=== PATIENT | female | born 1940 | race Caucasian/White ===

== ENCOUNTER → 2017-01-24 | Outpatient (CLI) | payer MEDICARE ==
[2015-03-03 12:17] VITALS: BP 191/97
[~2017-01-24] MED LIST: CYCL10TA2 PO; DOXY100C2 PO; HYDR-971 PO; LOSA1TAB16 PO; PRAV40TA2 PO
--- NOTE | 2017-01-24 12:35 | KCIC ---
CT of the paranasal sinuses HISTORY: Chronic sinusitis with fever for 2 months. TECHNIQUE: Standard noncontrast images. COMPARISON: None FINDINGS: The paranasal sinuses are clear without fluid levels or significant mucosal thickening. No evidence of aggressive bone destruction. Orbital structures appear grossly symmetric. Degenerative changes are noted at the C1 and C2 level. There is some calcification posterior to the odontoid likely due to chronic pannus. Degenerative changes at the right temporomandibular joint. IMPRESSION: No evidence of acute paranasal sinus disease. Electronically signed by: Yeison Romero MD (01/24/2017 12:32 PM) [facility]
== END | disposition home or self-care (01) ==
LOC: KCIC CT 10:57
PROVIDERS: ATTEND Family Medicine
DX: J32.9 Chronic sinusitis, unspecified (principal); R50.9 Fever, unspecified
CPT/HCPCS: 70486

== ENCOUNTER → 2020-01-24 | Outpatient (CLI) | payer MEDICARE ==
[2015-03-03 12:17] VITALS: BP 191/97
[~2020-01-24] MED LIST changes: +AMLO10TA8 PO; +ASPI81TA59 PO; +CALC500T54 PO; +CETI10TA16 PO; +CYAN250T PO; +HYDR-3164 PO; -HYDR-971 PO; +IOHEXOL 180 MG/ML 10 ML VIAL. ONE; -LOSA1TAB16 PO; +LOSA1TAB19 PO; +MULT-47 PO; +TIZA4TAB2 PO; +methylPREDNISolone ACETATE 40 MG/ML VIAL. ONE; +methylPREDNISolone ACETATE 80 MG/ML VIAL. ONE; +vitamin d
--- NOTE | 2020-01-24 14:28 | PDOC2 ---
INITIAL PAIN CONSULT DATE OF SERVICE: DOS: DATE: 01/24/20 TIME: 14:20 CHIEF COMPLAINT: Chief Complaint: Neck and bilateral upper extremity pain HISTORY OF PRESENT ILLNESS: 79-year-old female male presents with history of pain base the neck and shoulder and upper extremities for about 1 month now not the result of any injury or accident that she is aware of, but significantly painful in the base the neck shoulders radiating the upper arms mostly the posterior aspect the deltoid and the triceps but present bilaterally slightly worse on the right than the left but present bilaterally reports intermittent intensity worse with reaching worse with weightbearing repetitive motions with the upper extremities right greater than left patient is right-handed. Patient has tried physical therapy as well as chiropractic treatment exercise which he is currently doing all which have been helpful but not to decrease neck pain for any significant period of time patient is tried hydrocodone which helps as well taking that twice daily currently. Patient did have an MRI scan of the cervical spine showing multilevel cervical spondylosis similar to appearance of March 21, 2017 exam with moderate to space narrowing C4-5 C5-6 C6-7 and C7-T1 with osteophyte formation C5-6 C6-7 shows mild bilateral uncovertebral osteophyte formation resulting in mild narrowing of the medial portion of the bilateral neural foramina C7-T1 showing broad-based posterior disc osteophyte formation without focal disc herniation or central canal stenosis. Also mild bilateral uncover tebral osteophyte formation resulting in mild narrowing of the medial portion of the bilateral neural foramen at C7-T1. Patient rates her disability rating 0-10 10 being the worst as 5 with family home responsibilities and recreation and occupation and self-care and life support activity 7 with social activity. Patient reports no overt motor loss but significant fatigability with the upper extremities patient on the right side with repetitive motion PAST MEDICAL HISTORY: PMH: Hypertension, arthritis, cigarette smoking PREVIOUS SURGERIES: Past Surgical Hx: No previous surgeries CURRENT MEDICATIONS: Current Meds: Active Scripts Medications Dose Route/Sig Max Daily Dose Days Date Category Vitamin B-12 (Cyanocobalamin (Vitamin B-12)) 250 Mcg Tablet 250 Mcg PO DAILY 01/24/20 Reported [vitamin d] 125 DAILY 01/24/20 Reported Calcium (Calcium Carbonate) 500 Mg Tab.chew 1 Tab PO DAILY 30 01/24/20 Reported Children's Aspirin (Aspirin) 81 Mg Tab.chew 1 Tab PO DAILY 30 01/24/20 Reported Multiple Vitamins For Women (Multivit With Calcium,Iron,Min) 1 Each Tablet 1 Tab PO DAILY 30 01/24/20 Reported Tizanidine Hcl 4 Mg Tablet 4 Mg PO QID PRN 01/24/20 Reported Cetirizine Hcl 10 Mg Tablet 1 Tab PO DAILY 01/24/20 Reported Amlodipine Besylate 10 Mg Tablet 10 Mg PO DAILY 01/24/20 Reported Pravastatin Sodium 40 Mg Tablet 1 Tab PO QHS 01/17/15 Reported [place] 5-325 Tablet (Acetaminophen/Hydrocodone Bitart) 1 Each Tablet 1 Tab PO TID 01/17/15 Reported Losartan-Hctz 50-12.5 Mg Tab (Losartan/Hydrochlorothiazide) 1 Each Tablet 1 Tab PO DAILY 01/17/15 Reported ALLERGIES; Allergies: Coded Allergies: Sulfa (Sulfonamide Antibiotics) (Unverified Allergy, Intermediate, 01/17/15) codeine (Unverified Allergy, Intermediate, 01/17/15) fluoxetine (Unverified Allergy, Intermediate, 01/17/15) FAMILY HISTORY: Family Hx: Diabetes SOCIAL HISTORY: Social Hx: Patient does not drink alcohol smokes about half pack a day cigarettes and continues to smoke and has for 60 years, patient is not use any illegal illicit recreational drugs is lives with her spouse reports she is currently retired. REVIEW OF SYSTEMS: ROS: Positive for those items mentioned in history of present illness, all systems are reviewed, otherwise negative, is complete full and well-documented on patient's chart PHYSICAL EXAM: VS: Blood pressure is 125/69 pulse 85 respirations 18 temperature 97.9 F height is 4 feet 11 inches weight is 1 1 4 pounds PE: PHYSICAL EXAMINATION: GENERAL: The patient is awake, alert, oriented, appropriate, very pleasant de meanor HEENT: Shows normocephalic, atraumatic. Extraocular movements are intact and symmetrical. Oral cavity: Mucous membranes moist and pink. Dentition is intact. NECK: Shows anterior throat supple without palpable lymphadenopathy noted. Swallow reflex symmetrical. CHEST: Shows normal on inspection. Breath sounds are clear bilaterally, distant but no rales rhonchi or wheezes auscultated. HEART: Shows S1, S2 clear. No murmurs auscultated. ABDOMEN: Soft, nontender, nondistended. No palpable organomegaly is noted. No rebound or guarding demonstrated. BACK: Shows spine grossly in the midline. Normal-appearing cervical lordotic curvature, neck shows full rotation motion cervical spine both laterally greater than 45 degrees some moderate tenderness reported with rotation to the right past 45 degrees closer to 90 degrees but with pulling sensation on the left side left lateral rotation shows no discomfort right or left patient is full rotation and extension as well as full forward flexion without significant pain reported. There is slightly increased thoracic kyphosis, some minor flattening of the lumbar lordotic curvature. Lumbar paraspinous muscles show symmetrical on inspection, on palpation shows some moderate tenderness diffusely throughout the upper, middle and lower distribution of the paraspinous muscles bilaterally, but without specific trigger points, without radiation of pain. EXTREMITIES: Upper extremities show deep tendon reflexes 2+ in the biceps and triceps tendons. Motor exam is 4 on a scale of 5 with right entry level sales representative strength, biceps triceps flexion and 5/5 on the left. Peripheral pulses are 2+ radial. No peripheral edema is noted bilaterally. Upper extremities are warm and dry to touch, equal in color and appearance. Shoulder shrug is strong and intact without loss of strength on resistance as is abduction of the shoulder 90 degrees without loss of strength but with some moderate tenderness in the base of the neck slightly more on the right than the left with these maneuvers. SKIN: Shows warm and dry, good turgor. No edema. No sores, rashes or bruising throughout. IMPRESSION: Impression: 79-year-old female with approximate 1 month history increasing pain base the neck and shoulders right lateral upper extremities right greater than left. MRI scan cervical spine as noted Hypertension Arthritis Plan: Options were discussed with the patient including conservative medical management physical therapies interventional techniques. Patient would like to be interventional techniques, we discussed a cervical epidural steroid injection using description as well as anatomical models to describe the procedure. Risks were discussed including but not limited to: Bleeding, infection, possibility of epidural hematoma and subsequent neurological compromise, dural puncture, headaches, spinal cord and/or nerve damage, side effects of steroid medication, and poor results regarding pain control. Patient understands wished to proceed. Patient return to clinic in possibly 2 weeks for follow-up was counseled as return appointment activity level and side effects to be aware of. Procedure cervical epidural steroid injection at the C6-7 level, using local anesthetic under sterile prep and drape using C-arm fluoroscopic guidance under local anesthesia medications injected ; 120 mg Depo-Medrol + 5 mL normal saline and 2 mL contrast; condition at discharge is stable patient tolerated procedure well. and had no complications MADISON OBRIEN MD Jan 24, 2020 14:28
== END | disposition home or self-care (01) ==
LOC: PNCL 13:09
PROVIDERS: ATTEND Anesthesiology
DX: M47.812 Spondylosis without myelopathy or radiculopathy, cervical region (principal); M25.78 Osteophyte, vertebrae; M25.512 Pain in left shoulder; M25.511 Pain in right shoulder; I10 Essential (primary) hypertension; M19.90 Unspecified osteoarthritis, unspecified site; F17.210 Nicotine dependence, cigarettes, uncomplicated; Z88.2 Allergy status to sulfonamides; Z88.5 Allergy status to narcotic agent; Z88.8 Allergy status to other drugs, medicaments and biological substances; Z79.82 Long term (current) use of aspirin; Z79.899 Other long term (current) drug therapy
CPT/HCPCS: 62321; J1030; J1040; Q9965

== ENCOUNTER → 2020-02-21 | Outpatient (CLI) | payer MEDICARE ==
[2015-03-03 12:17] VITALS: BP 191/97
[~2020-02-21] MED LIST changes: +AMLO-187 PO; -AMLO10TA8 PO
--- NOTE | 2020-02-21 14:00 | PDOC ---
Progress Note - Pain Clinic Date of Service: DOS: DATE: 02/21/20 TIME: 13:50 Diagnosis: Dx: Cervical radiculopathy with cervical degenerative disc disease and cervical spondylosis History or Present Illness: HPI: 39-year-old female returns follow-up status post cervical epidurals injection x1. Patient reports about 70% improvement the neck and shoulders and upper extremities more so on the left than the right with the right still having some significant pain left in the base the neck shoulder right upper extremity rating to the right forearm patient reports is a 5 on a scale of 10 is worse the past week 5 on average 3 its least is a 5 today patient describes as dull tight in the neck also shooting and some tingling pain in the upper and forearm. Patient reports it does not awaken her from sleep worse with using the upper extremities with repetitive motion especially on the right side now the left is doing much better. Patient reports no new motor or sensory deficits or other complaints. Physical Exam: VS: Blood pressure 154/84 pulse 91 respirations 18 temperature 98.2 F height is 4 foot 11 inches weight is 117 pounds PE: PHYSICAL EXAMINATION: GENERAL: The patient is awake, alert, oriented, appropriate, very pleasant demeanor HEENT: Shows normocephalic, atraumatic. Extraocular movements are intact and symmetrical. NECK: Shows anterior throat supple without palpable lymphadenopathy noted. Swallow reflex symmetrical. CHEST: Shows normal on inspection. Breath sounds are clear bilaterally. HEART: Shows S1, S2 clear. No murmurs auscultated. ABDOMEN: Soft, nontender, nondistended. No palpable organomegaly is noted. No rebound or guarding demonstrated. BACK: Shows spine grossly in the midline. Normal-appearing cervical lordotic curvature. Neck shows full rotation motion cervical spine both laterally as well as extension flexion without significant increase in pain. Posterior cervical musculature shows symmetrical on inspection with palpation some moderate tenderness diffusely in the inferior aspect the cervical paraspinous posture but more on the right than the left into the superior medial trapezius but without specific trigger points atrophy or hypertrophy. There is slightly increased thoracic kyphosis, some minor flattening of the lumbar lordotic curvature. Lumbar paraspinous muscles show symmetrical on inspection, on palpation shows some moderate tenderness diffusely throughout the upper, middle and lower distribution of the paraspinous muscles bilaterally without specific trigger points, without radiation of pain. The patient has good rotational motion of the lumbar spine, both laterally as well as extension and flexion without significant difficulty. No tenderness over the spinous processes, sacrum or sacroiliac regions. EXTREMITIES: Upper extremities show deep tendon reflexes 2+ in the biceps and triceps tendons. Motor exam is 4 on a scale of 5 with right channel account manager strength bicep and triceps flexion and 5/5 on the left. Peripheral pulses are 2+ radial. No peripheral edema is noted bilaterally. Upper extremities are warm and dry to touch, equal in color and appearance. SKIN: Shows warm and dry, good turgor. No edema. No sores, rashes or bruising throughout. Procedure: Procedure: Options were discussed with the patient. Patient's old chart was reviewed as her current medication regimen updated current review of systems updated today as well. We will proceed with a second in the series cervical epidural steroid injection today with fluoroscopic guidance. Risks were discussed including but not limited to: Bleeding, infection, possibility of epidural hematoma and subsequent neurological compromise, dural puncture, headaches, spinal cord and/or nerve damage, side effects of steroid medication, and poor results regarding pain control. Patient understands wished to proceed. Patient will return to clinic in approximate 2 weeks for follow-up was counseled as to return appointment activity level and side effects to be aware of. Medication Injected: Med Injected: Procedure cervical epidural steroid injection at the C6-7 level, using local anesthetic under sterile prep and drape using C-arm fluoroscopic guidance under local anesthesia medications injected ; 120 mg Depo-Medrol + 5 mL normal saline and 2 mL contrast; condition at discharge is stable patient tolerated procedure well. and had no complications Condition at Discharge: Condition at Discharge: Condition at discharge is stable patient tolerated the procedure well had no complications. MADISON OBRIEN MD Feb 21, 2020 14:00
== END ==
LOC: PNCL 13:03
PROVIDERS: ATTEND Anesthesiology
DX: M50.123 Cervical disc disorder at C6-C7 level with radiculopathy (principal); M47.892 Other spondylosis, cervical region; I10 Essential (primary) hypertension; F17.210 Nicotine dependence, cigarettes, uncomplicated; Z88.2 Allergy status to sulfonamides; Z88.5 Allergy status to narcotic agent; Z88.8 Allergy status to other drugs, medicaments and biological substances; Z79.82 Long term (current) use of aspirin; Z79.899 Other long term (current) drug therapy
CPT/HCPCS: 62321; J1030; J1040; Q9965

== ENCOUNTER → 2020-07-07 | Outpatient (CLI) | payer MEDICARE ==
[2015-03-03 12:17] VITALS: BP 191/97
[~2020-07-07] MED LIST changes: -CYAN250T PO; +CYAN250T3 PO
--- NOTE | 2020-07-07 12:40 | PDOC ---
Progress Note - Pain Clinic Date of Service: DOS: DATE: 07/07/20 TIME: 12:36 Diagnosis: Dx: Cervical radiculopathy with cervical degenerative disease and cervical spondylosis History or Present Illness: HPI: 79-year-old female returns follow-up status post cervical epidural steroid injection x2. Last seen February 21, 2020 patient did very well for several months pain is returning down the base the neck and shoulders. Patient reports some right equal to left with pain base the neck shoulders radiating into the upper extremities as well. Patient reports no loss of motor function but significant fatigability with the left and right shoulders and upper extremities with pain rated to the anterior deltoid as well as biceps bilaterally into the forearm bilaterally. Patient reports is an 8 on a scale of 10 is worst 8 on average and is 7 its least over the past week and is 8 today patient reports is aching and tight tingling coming more constant with activity reaching overhead with bilateral upper extremities awaken her from sleep occasionally but not every night patient reports no new motor or sensory deficits no new bowel or bladder incontinence. Patient also complains of bilateral shoulder joint pain with rotation of motion as well as bilateral knee joint pain with walking and standing. Physical Exam: VS: Blood pressure is 163/81 pulse 93 respirations 18 temperature 90.4 F height is 4 foot 11 inches weight 121 pounds PE: PHYSICAL EXAMINATION: GENERAL: The patient is awake, alert, oriented, appropriate, very pleasant demeanor HEENT: Shows normocephalic, atraumatic. Extraocular movements are intact and symmetrical. Oral cavity: Mucous membranes moist and pink. Dentition is intact. NECK: Shows anterior throat supple without palpable lymphadenopathy noted. Swallow reflex symmetrical. CHEST: Shows normal on inspection. Breath sounds are clear bilaterally, no rales or rhonchi. HEART: Shows S1, S2 clear. No murmurs auscultated. ABDOMEN: Soft, nontender, nondistended, obese. No palpable organomegaly is noted. d. BACK: Shows spine grossly in the midline. Normal-appearing cervical lordotic curvature. Cervical paraspinous muscles show symmetrical with inspection, on palpation some moderate tenderness diffusely bilaterally diffusely without significant radiation. Patient does show good rotation of motion both laterally greater than 45 degrees bilaterally as well as full extension and full forward flexion without significant increase in pain. There is slightly increased thoracic kyphosis, some minor flattening of the lumbar lordotic curvature. Lumbar paraspinous muscles show symmetrical on inspection, on palpation shows some moderate tenderness diffusely throughout the upper, middle and lower distribution of the paraspinous muscles without specific trigger points, without radiation of pain. The patient has good rotational motion of the lumbar spine, both laterally as well as extension and flexion without significant difficulty. No tenderness over the spinous processes, sacrum or sacroiliac regions. EXTREMITIES: Upper extremities show deep tendon reflexes 2+ in the biceps and triceps tendons. Motor exam is 4 on a scale of 5 with right internet marketing manager strength, biceps and triceps flexion and 5/5 on the left. Peripheral pulses are 2+ radia l. No peripheral edema is noted bilaterally. Upper extremities are warm and dry to touch, equal in color and appearance. SKIN: Shows warm and dry, good turgor. No edema. No sores, rashes or bruising throughout. Procedure: Procedure: Options were discussed with the patient. Patient's old chart reviews her current medication regimen updated current review of systems updated today as well. We will proceed with a third in the series cervical epidural steroid injection today with fluoroscopic guidance. Risks were discussed including but not limited to: Bleeding, infection, possibility of epidural hematoma and subsequent neurological compromise, dural puncture, headaches, spinal cord and/or nerve damage, side effects of steroid medication, and poor results regarding pain control. Patient understands and wished to proceed. Patient will return to the clinic in approximate 2 weeks for follow-up, was counseled as to return appointment activity level and side effects to be aware of. Medication Injected: Med Injected: Procedure cervical epidural steroid injection at the C6-7 level, using local anesthetic under sterile prep and drape using C-arm fluoroscopic guidance under local anesthesia medications injected ; 120 mg Depo-Medrol + 5 mL normal saline and 2 mL contrast; condition at discharge is stable patient tolerated pr ocedure well. and had no complications Condition at Discharge: Condition at Discharge: Condition at discharge stable, patient alert the procedure well and had no complications. MADISON OBRIEN MD Jul 07, 2020 12:40
--- NOTE | 2020-07-07 12:41 | PDOC4 ---
PROCEDURE Procedure Patient was consented for cervical epidural steroid injection. Risks were d iscussed including but not limited to: Bleeding, infection, possibility of epidural hematoma and subsequent neurological compromise, dural puncture, headaches, spinal cord and/or nerve damage, side effects of steroid medication, and poor results regarding pain control. Patient understands and wished to proceed. Procedure cervical epidural steroid injection at the C6-7 level, using local anesthetic under sterile prep and drape using C-arm fluoroscopic guidance under local anesthesia medications injected ; 120 mg Depo-Medrol + 5 mL normal saline and 2 mL contrast; condition at discharge is stable patient tolerated procedure well. and had no complications MADISON OBRIEN MD Jul 07, 2020 12:40
== END | disposition home or self-care (01) ==
LOC: PNCL 12:11
PROVIDERS: ATTEND Anesthesiology
DX: M50.10 Cervical disc disorder with radiculopathy, unspecified cervical region (principal); M47.22 Other spondylosis with radiculopathy, cervical region; I10 Essential (primary) hypertension; M19.90 Unspecified osteoarthritis, unspecified site; F17.210 Nicotine dependence, cigarettes, uncomplicated; Z79.82 Long term (current) use of aspirin; Z79.84 Long term (current) use of oral hypoglycemic drugs; Z79.899 Other long term (current) drug therapy; Z98.890 Other specified postprocedural states; Z72.89 Other problems related to lifestyle; Z88.2 Allergy status to sulfonamides; Z88.5 Allergy status to narcotic agent; Z88.8 Allergy status to other drugs, medicaments and biological substances
CPT/HCPCS: 62321; J1030; J1040; Q9965

== ENCOUNTER → 2020-11-27 | Outpatient (CLI) | payer MEDICARE ==
[2015-03-03 12:17] VITALS: BP 191/97
--- NOTE | 2020-11-27 13:47 | PDOC ---
Progress Note - Pain Clinic Date of Service: DOS: DATE: 11/27/20 TIME: 13:43 Diagnosis: Dx: Cervical radiculopathy with cervical degenerative disease and cervical spondylosis History or Present Illness: HPI: 79-year-old female returns for follow-up status post cervical epidural steroid injections most recently seen July 07, 2020 patient did very well with 90% improvement for several months pain returned now about 2 weeks time. With pain returning base the neck and shoulders are somewhat worse on the right than the left and present bilaterally radiating to the upper extremities bilaterally into the shoulders arms and forearms as well as in the hands more on the right than the left patient reports some fatigability of the right arm but no loss of motor function completely patient reports the pain is an 8 on scale 10 is worse over the past week 7 on average 6 its least is a 7 today. Patient reports is aching and tight tingling constant shooting and stabbing in the neck and shoulders as well as in the right greater than left upper extremities. She reports wakes her from sleep occasionally but not most nights. Patient reports is worse with weightbearing repetitive motions reaching lifting or reaching forward with weight in the upper extremities. Patient reports no motor loss but significant fatigability bilaterally. Physical Exam: VS: Blood pressure is 157/83 pulse 87 respirations 18 temperature 90.5 F height is 4 feet 11 inches weight is 120 pounds PE: PHYSICAL EXAMINATION: GENERAL: The patient is awake, alert, oriented, appropriate, very pleasant in demeanor. HEENT: Shows normocephalic, atraumatic. Extraocular movements are intact and symmetrical. Oral cavity: Mucous membranes moist and pink. Dentition is intact. NECK: Shows anterior throat supple without palpable lymphadenopathy noted. Swallow reflex symmetrical. CHEST: Shows normal on inspection. Breath sounds are clear bilaterally, distant but no rales rhonchi or wheezes auscultated. HEART: Shows S1, S2 clear. No murmurs auscultated. ABDOMEN: Soft, nontender, nondistended, obese. No palpable organomegaly is noted. BACK: Shows spine grossly in the midline. Normal-appearing cervical lordotic curvature. Cervical paraspinous muscles show symmetrical inspection on palpation some moderate tenderness diffusely throughout the upper middle lower distribution the paraspinous muscles but without specific trigger points, without radiation or asymmetry. Patient shows good rotation motion cervical spine slightly guarded right and left lateral rotation but past 45 degrees closer to 90 degrees well is full extension full forward flexion again guarded and slow movement but without significant limitation. There is slightly increased thoracic kyphosis, some minor flattening of the lumbar lordotic curvature. EXTREMITIES: Upper extremities show deep tendon reflexes 2+ in the biceps and tricep tendons. Motor exam is 4 on a scale of 5 with right gang hemstitching machine operator, biceps and triceps flexion and 5/5 on the left. Peripheral pulses are 2+ radial. No peripheral edema is noted bilaterally. Upper extremities are warm and dry to touch, equal in color and appearance. SKIN: Shows warm and dry, good turgor. No edema. No sores, rashes or bruising throughout. Procedure: Procedure: Options discussed with the patient. Patient chart reviews her current medication regimen updated current review of systems updated today as well. We will proceed with a cervical epidural steroid injection stable fluoroscopic guidance. Risks were discussed including but not limited to: Bleeding, infection, possibility of epidural hematoma and subsequent neurological c ompromise, dural puncture, headaches, spinal cord and/or nerve damage, side effects of steroid medication, and poor results regarding pain control. Patient understands and wished to proceed. Patient will return to the clinic in approximate 2 weeks for follow-up, was counseled as return appointment activity level and side effects to be aware of. Medication Injected: Med Injected: Procedure cervical epidural steroid injection at the C6-7 level, using local anesthetic under sterile prep and drape using C-arm fluoroscopic guidance under local anesthesia medications injected ;120 mg Depo-Medrol +5 mL normal saline and 2 mL contrast; condition at discharge is stable patient tolerated procedure well. and had no complications Condition at Discharge: Condition at Discharge: Condition at discharge stable, patient already the procedure well and had no complications. MADISON OBRIEN MD Nov 27, 2020 13:47
--- NOTE | 2020-11-27 13:48 | PDOC4 ---
Procedure Note: ICD 10 Code: ICD 10 Code: M 54.12 M 47.812 Procedure Note: Patient was consented for cervical epidural steroid injection with fluoroscopic guidance. Risks were discussed including but not limited to: Bleeding, infection, possibility of epidural hematoma and subsequent neurological compromise, dural puncture, headaches, spinal cord and/or nerve damage, side effects of steroid medication, and poor results regarding pain control. Patient understands and wished to proceed. Procedure cervical epidural steroid injection at the C6-7 level, using local anesthetic under sterile prep and drape using C-arm fluoroscopic guidance under local anesthesia medications injected ;120 mg Depo-Medrol +5 mL normal saline and 2 mL contrast; condition at discharge is stable patient tolerated procedure well. and had no complications MADISON OBRIEN MD Nov 27, 2020 13:48
== END ==
LOC: PNCL 13:04
PROVIDERS: ATTEND Anesthesiology
DX: M47.812 Spondylosis without myelopathy or radiculopathy, cervical region (principal); M50.123 Cervical disc disorder at C6-C7 level with radiculopathy
CPT/HCPCS: 62321; J1030; J1040; Q9965

== ENCOUNTER → 2021-01-21 | Outpatient (CLI) | payer MEDICARE ==
[2015-03-03 12:17] VITALS: BP 191/97
[~2021-01-21] MED LIST changes: -DOXY100C2 PO; +DOXY100C3 PO; -IOHEXOL 180 MG/ML 10 ML VIAL. ONE; -methylPREDNISolone ACETATE 40 MG/ML VIAL. ONE; -methylPREDNISolone ACETATE 80 MG/ML VIAL. ONE
--- NOTE | 2021-01-21 14:08 | KCIC ---
EXAM: Cervical spine MRI without contrast. HISTORY: Cervical stenosis. TECHNIQUE: Multiplanar, multisequence magnetic resonance imaging of the cervical spine was performed without contrast. COMPARISON: None. FINDINGS: There is severe cervical kyphosis centered at C5. There is 4 mm anterolisthesis of C3 on C4 and C4 on C5, 2 mm retrolisthesis of C5 on C6 and C6 on C7 and 2 mm anterolisthesis of C7 on T1, T1 on T2 and T2 on T3. There is severe degenerative endplate remodeling with disc space narrowing and os teophytosis primarily at C3-C7. There are multiple endplate Schmorl's nodes. There is multilevel adva nced facet arthropathy. There is deformation of the cervical spinal cord at multiple levels due to ce ntral canal stenosis. There is no convincing myelomalacia or spinal cord edema. There are few dilated nerve root sheath cysts within the neural foramina at the upper thoracic levels. The skull base is u nremarkable. There are small cysts or erosions at the base of the dens and there is soft tissue jono s surrounding the dens. This is a nonspecific finding which can be seen with rheumatoid arthritis. At C2-C3, there is a posterior central disc protrusion. There is severe bilateral facet arthropathy. There is right uncovertebral arthropathy. There is buckling of the ligamentum flavum. There is modera te and central canal stenosis measuring 7.6 mm in anterior posterior dimension. At C3-C4, there is a disc bulge and endplate remodeling. There is moderate right and severe left face t arthropathy. There is uncovertebral arthropathy. There is buckling of the ligamentum flavum. There is moderate central canal stenosis measuring 7.3 mm in anterior posterior dimension. At C4-C5, there is near complete loss of the disc space. There is endplate osteophytosis. There is mo derate bilateral facet arthropathy. There is uncovertebral arthropathy. There is no stenosis. At C5-C6, there is a disc bulge and endplate osteophytosis. There is mild bilateral facet arthropathy . There is right greater than left uncovertebral arthropathy. There is moderate right and mild left f oraminal stenosis. At C6-C7, there is a disc bulge and endplate osteophytosis. There is mild bilateral facet arthropathy . There is bilateral uncovertebral arthropathy. There is moderate right and mild left foraminal steno sis. At C7-T1, there is a disc bulge and endplate osteophytosis. There is mild bilateral facet arthropathy . There is uncovertebral arthropathy. There is moderate right foraminal stenosis. IMPRESSION: 1. Multilevel degenerative change throughout the cervical and upper thoracic spine, described in deta il above. This is associated with significant foraminal and central canal stenosis at the aforementio erik levels. There is deformation of the cervical spinal cord due to central canal stenosis at multipl e levels, without convincing spinal cord edema or myelomalacia. 3. Severe cervical kyphosis and multilevel degenerative listhesis. Electronically signed by: Francisca Alvarado MD (01/21/2021 2:06 PM) [facility]
== END ==
LOC: KCIC MRI 12:54
PROVIDERS: ATTEND Family Medicine
DX: M47.815 Spondylosis without myelopathy or radiculopathy, thoracolumbar region (principal); M48.05 Spinal stenosis, thoracolumbar region; M50.21 Other cervical disc displacement, high cervical region; M48.02 Spinal stenosis, cervical region; M40.202 Unspecified kyphosis, cervical region; M25.78 Osteophyte, vertebrae
CPT/HCPCS: 72141

== ENCOUNTER → 2021-03-11 | Outpatient (CLI) | payer MEDICARE ==
[2015-03-03 12:17] VITALS: BP 191/97
[~2021-03-11] MED LIST changes: +CYCL10TA19 PO; -CYCL10TA2 PO; +IOHEXOL 180 MG/ML 10 ML VIAL. ONE; +TIZA-75 PO; -TIZA4TAB2 PO; +methylPREDNISolone ACETATE 40 MG/ML VIAL. ONE; +methylPREDNISolone ACETATE 80 MG/ML VIAL. ONE
--- NOTE | 2021-03-11 10:48 | PDOC ---
Progress Note - Pain Clinic Date of Service: DOS: DATE: 03/11/21 TIME: 10:43 Diagnosis: Dx: Cervical radiculopathy with cervical degenerative disease and cervical spondylosis History or Present Illness: HPI: 80-year-old female returns last seen November 27, 2020 did very well after cervical epidural steroid injection and reports pain is returning now and she is recently seen her neurosurgeon who is recommending conservative measures as well as physical therapy patient reports still significant pain in the base the neck and shoulders now more in both of the shoulders right and left were previously was more on the right side it is persistently equal now in the left side as well as radiating to the left arm more than it had in the past patient reports is a 9 on scale 10 is worst 9 average and 8 its least is a 9 today patient ports tingling sharp aching burning can be constant worse with repetitive motions reaching or weightbearing and extended walking and using her walker causing some pain in the neck as well patient reports generally awakens her from sleep every 3-4 hours at night over the past month or so patient reports after last injection she did very well for several months pain decreased by about 75% initially now about 50% overall. Patient reports no motor deficits Physical Exam: VS: Blood pressure is 146/74 pulse 96 respiration 16 temperature 90.1 F is 4 foot 11 inches weight is 122 pounds. PE: PHYSICAL EXAMINATION: GENERAL: The patient is awake, alert, oriented, appropriate, very pleasant in demeanor HEENT: Shows normocephalic, atraumatic. Extraocular movements are intact and symmetrical. Oral cavity: Mucous membranes moist and pink. Edentulous NECK: Shows anterior throat supple without palpable lymphadenopathy noted. Swallow reflex symmetrical. CHEST: Shows normal on inspection. Breath sounds are clear bilaterally, no rales rhonchi or wheezes. HEART: Shows S1, S2 clear. No murmurs auscultated. ABDOMEN: Soft, nontender, nondistended. No palpable organomegaly is noted. BACK: Shows spine grossly in the midline. Normal-appearing cervical lordotic curvature. Cervical paraspinous muscles show symmetrical with inspection, on palpation some moderate tenderness diffusely bilaterally in the upper middle lower decrease the paraspinous muscles without trigger points without asymmetry but moderately tender this is true into the superior medial trapezius as well bilaterally without trigger points or asymmetry. Patient shows good rotation of motion of cervical spine both laterally as well as full extension full forward flexion somewhat guarded but without increase in pain or radiation. There is sl ightly increased thoracic kyphosis, some minor flattening of the lumbar lordotic curvature. EXTREMITIES: Upper extremities show deep tendon reflexes 2+ in the biceps and tricep tendons. Motor exam is 4 on a scale of 5 with right quarter supervisor strength, biceps and triceps flexion and 5/5 on the left. Peripheral pulses are 2+ radial. No peripheral edema is noted bilaterally. Upper extremities are warm and dry to touch, equal in color and appearance. SKIN: Shows warm and dry, good turgor. No edema. No sores, rashes or bruising throughout. Procedure: Procedure: Options were discussed with the patient. Patient's old chart was reviewed as her current medication regimen updated current review of systems updated today as well. We will proceed with a cervical epidural steroid injection today with fluoroscopic guidance. Risks were discussed including but not limited to: Bleeding, infection, possibility of epidural hematoma and subsequent neurological compromise, dural puncture, headaches, spinal cord and/or nerve damage, side effects of steroid medication, and poor results regarding pain control. Patient understands and wished to proceed. Patient will return to the clinic in approximately 2 weeks for follow-up, was counseled as return appointment, [place], and side effect to be aware of. Medication Injected: Med Injected: Procedure cervical epidural steroid injection at the C6-7 level, using local anesthetic under sterile prep and drape using C-arm fluoroscopic guidance under local anesthesia medications injected ;120 mg Depo-Medrol +5 mL normal saline and 2 mL contrast; condition at discharge is stable patient tolerated procedure well. and had no complications Condition at Discharge: Condition at Discharge: Condition at discharge is stable, patient tolerated the procedure well had no complications MADISON OBRIEN MD Mar 11, 2021 10:48
--- NOTE | 2021-03-11 10:48 | PDOC4 ---
Procedure Note: ICD 10 Code: ICD 10 Code: M54.12 M50.30 M4 7.812 Procedure Note: Patient is consented for cervical epidural steroid injection with fluoroscopic guidance. Risks were discussed including but not limited to: Bleeding, infection, possibility of epidural hematoma and subsequent neurological compromise, dural puncture, headaches, spinal cord and/or nerve damage, side effects of steroid medication, and poor results regarding pain control. Patient understands and wished to proceed. Procedure cervical epidural steroid injection at the C6-7 level, using local anesthetic under sterile prep and drape using C-arm fluoroscopic guidance under local anesthesia medications injected ;120 mg Depo-Medrol +5 mL normal saline and 2 mL contrast; condition at discharge is stable patient tolerated procedure well. and had no complications MADISON OBRIEN MD Mar 11, 2021 10:48
== END | disposition home or self-care (01) ==
LOC: PNCL 10:11
PROVIDERS: ATTEND Anesthesiology
DX: M50.10 Cervical disc disorder with radiculopathy, unspecified cervical region (principal); M47.812 Spondylosis without myelopathy or radiculopathy, cervical region; I10 Essential (primary) hypertension; M19.90 Unspecified osteoarthritis, unspecified site; F17.210 Nicotine dependence, cigarettes, uncomplicated; Z79.82 Long term (current) use of aspirin; Z79.899 Other long term (current) drug therapy; Z88.2 Allergy status to sulfonamides; Z88.5 Allergy status to narcotic agent; Z88.8 Allergy status to other drugs, medicaments and biological substances
CPT/HCPCS: 62321; J1030; J1040; Q9965

== ENCOUNTER → 2021-05-21 | Outpatient (CLI) | payer MEDICARE ==
[2015-03-03 12:17] VITALS: BP 191/97
[~2021-05-21] MED LIST changes: +CHOL400C PO; -IOHEXOL 180 MG/ML 10 ML VIAL. ONE; -methylPREDNISolone ACETATE 40 MG/ML VIAL. ONE; -methylPREDNISolone ACETATE 80 MG/ML VIAL. ONE
--- NOTE | 2021-05-21 14:11 | PDOC ---
Progress Note - Pain Clinic Date of Service: DOS: DATE: 05/21/21 TIME: 14:05 Diagnosis: Dx: Cervical radiculopathy with cervical degenerative disease and cervical spondylosis Osteoarthritis History or Present Illness: HPI: 80-year-old female returns status post cervical epidural steroid injection x2 last seen March 11, 2021 patient did very well with about 85% improvement initially now about 50% improvement overall in the pain base the neck and left upper extremity greater than right patient reports she is doing much better with distance walking doing household activities travel with greater ease and comfort sleeping better patient reports still better when she is laying down or supporting her head when she is sitting upright and generally not awaken her from sleep currently. Patient reports that colder weather we have had recently has increased pain as well patient rates her pain as a 9 on scale 10 is worse over the past week 7 on average 7 its least is a 7 today. Patient scribes pain as aching and tight in the base the neck and shoulders constant and severe cramping at times with radiating pain into the upper extremities again more so on the left than the right but present bilaterally patient reports also significant increase in fatigability and dropping items with her left hand most prominently and difficulty with fine motor movements such as using buttons or snaps on clothing. Patient complains of significant pain in the hands and wrist as well as the elbows and also the knees and she is seeing orthopedist for her knees as well with osteoarthritis. We discussed patient's medication regimen she is currently not taking any anti- inflammatories for the arthritic pains we will start diclofenac 25 mg twice daily patient was given instructions as well as side effects aware with the new medication. Physical Exam: VS: Blood pressure is 144/73 pulse 69 respirations 18 temperature 90.3 F weight 119 pounds PE: PHYSICAL EXAMINATION: GENERAL: The patient is awake, alert, oriented, appropriate, very pleasant in demeanor HEENT: Shows normocephalic, atraumatic. Extraocular movements are intact and symmetrical. Oral cavity: Mucous membranes moist and pink. NECK: Shows anterior throat supple without palpable lymphadenopathy noted. Swallow reflex symmetrical. CHEST: Shows normal on inspection. Breath sounds are clear bilaterally, no rales rhonchi or wheezes auscultated. HEART: Shows S1, S2 clear. No murmurs auscultated. ABDOMEN: Soft, nontender, nondistended. No palpable organomegaly is noted. BACK: Shows spine grossly in the midline. Normal-appearing cervical lordotic curvature. Cervical paraspinous muscles show symmetrical inspection, on palpation some moderate tenderness diffusely throughout the middle and lower distribution paraspinous muscles bilaterally but without radiation without trigger points. Patient does show good rotation motion but slightly guarded with right left lateral rotation as well as extension and forward flexion they are performed fully. There is significantly increased thoracic kyphosis, some flattening of the lumbar lordotic curvature. EXTREMITIES: Upper extremities show deep tendon reflexes 2+ in the biceps and tricep tendons. Motor exam is 4 on a scale of 5 with right production quality analyst, biceps and tricep flexion and 5/5 on the left. Peripheral pulses are 2+ radial. No peripheral edema is noted bilaterally. Upper extremities are warm and dry to touch, equal in color and appearance. Shoulder shrug strong intact without loss strength on resistance bilaterally. SKIN: Shows warm and dry, good turgor. No edema. No sores, rashes or bruising throughout. Procedure: Procedure: Options were discussed with patient. Patient chart was reviewed his current medication regimen updated current review of systems updated today as well. We will proceed with cervical epidural steroid injection today with fluoroscopic guidance. Risks were discussed including but not limited to: Bleeding, infection, possibility of epidural hematoma and subsequent neurological compromise, dural puncture, headaches, spinal cord and/or nerve damage, side effects of steroid medication, and poor results regarding pain control. Patient understands and wished to proceed. Patient will return to clinic in [facility] 4 weeks for follow-up, was counseled as to return appointment, activity level, and side effects beware of. Again patient was given instructions as well as side effects aware with the new medication diclofenac 25 mg twice daily. Medication Injected: Med Injected: Procedure cervical epidural steroid injection at the C6-7 level, using local anesthetic under sterile prep and drape using C-arm fluoroscopic guidance under local anesthesia medications injected ;120 mg Depo-Medrol +5 mL normal saline and 2 mL contrast; condition at discharge is stable patient tolerated procedure well. and had no complications Condition at Discharge: Condition at Discharge: Condition at discharge stable, paced tolerated the procedure well and had no complications. MADISON OBRIEN MD May 21, 2021 14:11
--- NOTE | 2021-05-21 14:12 | PDOC4 ---
Procedure Note: ICD 10 Code: ICD 10 Code: M54.12 M50.30 M4 7.812 Procedure Note: Patient was consented for cervical epidural steroid injection with fluoroscopic guidance. Risks were discussed including but not limited to: Bleeding, infection, possibility of epidural hematoma and subsequent neurological compromise, dural puncture, headaches, spinal cord and/or nerve damage, side effects of steroid medication, and poor results regarding pain control. Patient understands and wished to proceed. Procedure cervical epidural steroid injection at the C6-7 level, using local anesthetic under sterile prep and drape using C-arm fluoroscopic guidance under local anesthesia medications injected ;120 mg Depo-Medrol +5 mL normal saline and 2 mL contrast; condition at discharge is stable patient tolerated procedure well. and had no complications MADISON OBRIEN MD May 21, 2021 14:12
== END | disposition home or self-care (01) ==
LOC: PNCL 13:06
PROVIDERS: ATTEND Anesthesiology
DX: M50.10 Cervical disc disorder with radiculopathy, unspecified cervical region (principal); M47.22 Other spondylosis with radiculopathy, cervical region; M19.90 Unspecified osteoarthritis, unspecified site; I10 Essential (primary) hypertension; Z79.899 Other long term (current) drug therapy; Z98.890 Other specified postprocedural states
CPT/HCPCS: 62321

== ENCOUNTER → 2021-07-22 | Outpatient (CLI) | payer MEDICARE ==
[2015-03-03 12:17] VITALS: BP 191/97
[~2021-07-22] MED LIST changes: +DEXAMETHASONE PRES.FREE 10 MG/ML VIAL. ONE; +IOHEXOL 180 MG/ML 10 ML VIAL. ONE
--- NOTE | 2021-07-22 14:55 | PDOC ---
Progress Note - Pain Clinic Date of Service: DOS: DATE: 07/22/21 TIME: 14:50 Diagnosis: Dx: Cervical radiculopathy with cervical degenerative disease and cervical spondylosis History or Present Illness: HPI: 80-year-old female returns last seen May 21, 2021 patient did very well after cervical epidural steroid injection with about 80% improvement initially now down about 50% improvement but still lasting patient reports the pain is much worse now on the left shoulder, without any recent injury or accident that is radiating into the left arm as initially was only in the shoulders bilaterally. Patient reports is new finding of radiating pain to the left arm is been going on for about a month not result of any specific injury but she did fall about 2 weeks ago at home however the pain in the arm was already there prior to this and that did not seem to exacerbate the pain significantly patient reports that is tingling and burning in the left arm and hand also in the forearm but not into the fingers patient reports aching and sharp and dull and tight in the bilateral shoulders right and left patient reports her pain is a 9 on scale 10 is worse over the past week 9 on average 7 at its least and is a 7 today. Patient reports is better with sitting or resting does not generally awaken her from sleep at night worse with repetitive motions reaching with her left arm or putting her weight on her arms when she is using her walker to ambulate she notices it in the left forearm that time as well. Patient reports no loss of motor function but significant fatigability of the left upper extremity as well. Physical Exam: VS: Blood pressure is 156/73 pulse 90 respirations 18 temperature is 98.1 F height is 4 feet 11 inches weight is 121 pounds. PE: PHYSICAL EXAMINATION: GENERAL: The patient is awake, alert, oriented, appropriate, very pleasant in demeanor HEENT: Shows normocephalic, atraumatic. Extraocular movements are intact and symmetrical. Oral cavity: Mucous membranes moist and pink. NECK: Shows anterior throat supple without palpable lymphadenopathy noted. Swallow reflex symmetrical. CHEST: Shows normal on inspection. Breath sounds are clear bilaterally, distant but no rales or rhonchi auscultated. HEART: Shows S1, S2 clear. No murmurs auscultated. ABDOMEN: Soft, nontender, nondistended. BACK: Shows spine grossly in the midline. Normal-appearing cervical lordotic curvature. Cervical paraspinous muscles show symmetrical with inspection, on palpation some moderate tenderness diffusely in the inferior aspect of the cervical paraspinous musculature as well as the superior medial trapezius more on the left than the right but without trigger points or atrophy hypertrophy no asymmetry. Patient shows limited rotation of motion of the cervical spine but good rotation 45 degrees right and left with some minor pain with extension but not with forward flexion. There is slightly increased thoracic kyphosis. EXTREMITIES: Upper extremities show deep tendon reflexes 2+ in the biceps and triceps tendons. Motor exam is 5 on a scale of 5 with right deployment specialist, biceps and triceps flexion and 4/5 on the left. Peripheral pulses are 2+ radial. No peripheral edema is noted bilaterally. Upper extremities are warm and dry to touch, equal in color and appearance. SKIN: Shows warm and dry, good turgor. No edema. No sores, rashes or bruising throughout. Procedure: Procedure: Options discussed with patient. Patient's old chart was reviewed as her current medication regimen updated current review of systems updated today as well. We will proceed with a cervical epidural steroid injection today with fluoroscopic guidance. Risks were discussed including but not limited to: Bleeding, infection, possibility of epidural hematoma and subsequent neurological compromise, dural puncture, headaches, spinal cord and/or nerve damage, side effects of steroid medication, and poor results regarding pain control. Patient understands and wished to proceed. Patient return to clinic in approximately 3 weeks for follow-up, was counseled as to return appointment, activity level, and side effect to be aware of. Medication Injected: Med Injected: Procedure cervical epidural steroid injection at the C6-7 level, using local anesthetic under sterile prep and drape using C-arm fluoroscopic guidance under local anesthesia medications injected ; 20 mg dexamethasone +5 mL normal saline and 2 mL contrast; condition at discharge is stable patient tolerated procedure well. and had no complications Condition at Discharge: Condition at Discharge: Condition at discharge stable, paced tolerated procedure well and had no complications. MADISON OBRIEN MD Jul 22, 2021 14:55
--- NOTE | 2021-07-22 14:56 | PDOC4 ---
Procedure Note: ICD 10 Code: ICD 10 Code: M54.12 M50.30 M4 7.812 Procedure Note: Patient was consented for cervical epidural steroid injection with fluoroscopic guidance. Risks were discussed including but not limited to: Bleeding, infection, possibility of epidural hematoma and subsequent neurological compromise, dural puncture, headaches, spinal cord and/or nerve damage, side effects of steroid medication, and poor results regarding pain control. Patient understands and wished to proceed. Procedure cervical epidural steroid injection at the C6-7 level, using local anesthetic under sterile prep and drape using C-arm fluoroscopic guidance under local anesthesia medications injected ; 20 mg dexamethasone +5 mL normal saline and 2 mL contrast; condition at discharge is stable patient tolerated procedure well. and had no complications MADISON OBRIEN MD Jul 22, 2021 14:56
== END | disposition home or self-care (01) ==
LOC: PNCL 13:27
PROVIDERS: ATTEND Anesthesiology
DX: M50.10 Cervical disc disorder with radiculopathy, unspecified cervical region (principal); M47.22 Other spondylosis with radiculopathy, cervical region; I10 Essential (primary) hypertension; M19.90 Unspecified osteoarthritis, unspecified site; F17.210 Nicotine dependence, cigarettes, uncomplicated; Z79.82 Long term (current) use of aspirin; Z79.899 Other long term (current) drug therapy; Z98.890 Other specified postprocedural states; Z88.2 Allergy status to sulfonamides; Z88.5 Allergy status to narcotic agent; Z88.8 Allergy status to other drugs, medicaments and biological substances
CPT/HCPCS: 62321; J1100; Q9965

== ENCOUNTER 2021-08-20 17:47 | Emergency (ER) | payer MEDICARE ==
[~2021-08-20] VITALS: Ht 149.9 cm; Wt 54.0 kg
[~2021-08-20 17:47] MED LIST changes: -DEXAMETHASONE PRES.FREE 10 MG/ML VIAL. ONE; -IOHEXOL 180 MG/ML 10 ML VIAL. ONE
--- NOTE | 2021-08-20 18:14 | PHYS DOC ---
Past Medical History Past Medical History: Arthritis, High Cholesterol, Hypertension Past Surgical History: No Surgical History Smoking Status: Current Every Day Smoker Additional Information: 1/2 pack/day Alcohol Use: None Drug Use: None General Adult EDM: Chief Complaint: SHOULDER INJURY HPI: HPI: Patient Is an 80-year-old female who presents today via [facility] with left humerus/shoulder pain. Patient states her left shoulder has been hurting her for quite some time but she denies any trauma, she states she had an epidural steroid injection into her neck last month here for Dr. Chi but has not had any injections into her shoulder. Patient states she does take [place] twice daily for her chronic back pain. Review of Systems: Review of Systems: Constitutional: Denies fever or chills. [] Eyes: Denies change in visual acuity. [] HENT: Denies nasal congestion or sore throat. [] Respiratory: Denies cough or shortness of breath. [] Cardiovascular: Denies chest pain or edema. [] GI: Denies abdominal pain, nausea, vomiting, bloody stools or diarrhea. [] : Denies dysuria. [] Musculoskeletal: Left shoulder/left upper arm pain Integument: Denies rash. [] Neurologic: Denies headache, focal weakness or sensory changes. [] Endocrine: Denies polyuria or polydipsia. [] Lymphatic: Denies swollen glands. [] Psychiatric: Denies depression or anxiety. [] Heart Score: C/O Chest Pain: No Risk Factors: Risk Factors: DM, Current or recent (<one month) smoker, HTN, HLP, family history of CAD, obesity. Risk Scores: Score 0 - 3: 2.5% MACE over next 6 weeks - Discharge Home Score 4 - 6: 20.3% MACE over next 6 weeks - Admit for Clinical Observation Score 7 - 10: 72.7% MACE over next 6 weeks - Early Invasive Strategies Current Medications: Current Medications Medications (Trade) Dose Ordered Sig/Yuliet Start Time Stop Time Status Last Admin Dose Admin Fentanyl Citrate (Fentanyl 2ml Vial) 50 mcg 1X ONCE 08/20/21 18:15 08/20/21 18:16 Allergies: Allergies: Allergies Coded Allergies Type Severity Reaction Last Updated Verified Sulfa (Sulfonamide Antibiotics) Allergy Severe swelling 08/20/21 No codeine Allergy Intermediate 9/18/15 No fluoxetine Adverse Reaction Intermediate palpitations 08/20/21 No Physical Exam: PE: Constitutional: Well developed, well nourished, no acute distress, non-toxic appearance. [] HENT: Normocephalic, atraumatic, bilateral external ears normal, oropharynx moist, no oral exudates, nose normal. [] Eyes: PERRLA, EOMI, conjunctiva normal, no discharge. [] Neck: Normal range of motion, no tenderness, supple, no stridor. [] Cardiovascular:Heart rate regular rhythm, no murmur [] Lungs & Thorax: Bilateral breath sounds clear to auscultation [] Abdomen: Bowel sounds normal, soft, no tenderness, no masses, no pulsatile masses. [] Skin: Warm, dry, no erythema, no rash. [] Back: No tenderness, no CVA tenderness. [] Extremities: Healing ecchymotic area located on the anterior of the shoulder, patient has adequate range of motion in the elbow and wrist but does have pain with palpation of the humerus area, patient refuses to move the left shoulder due to pain, radial pulse is 2+ cap refills less than 2 seconds and sensory is intact distal to the injury. Neurologic: Alert and oriented X 3, normal motor function, normal sensory function, no focal deficits noted. [] Psychologic: Affect normal, judgement normal, mood normal. [] Current Patient Data: Labs: Laboratory Tests Test 08/20/21 18:00 White Blood Count 7.9 x10^3/uL Red Blood Count 3.85 x10^6/uL Hemoglobin 12.9 g/dL Hematocrit 38.4 % Mean Corpuscular Volume 100 fL Mean Corpuscular Hemoglobin 34 pg Mean Corpuscular Hemoglobin Concent 34 g/dL Red Cell Distribution Width 14.2 % Platelet Count 519 x10^3/uL Neutrophils (%) (Auto) 50 % Lymphocytes (%) (Auto) 36 % Monocytes (%) (Auto) 9 % Eosinophils (%) (Auto) 4 % Basophils (%) (Auto) 1 % Neutrophils # (Auto) 3.9 x10^3/uL Lymphocytes # (Auto) 2.9 x10^3/uL Monocytes # (Auto) 0.7 x10^3/uL Eosinophils # (Auto) 0.3 x10^3/uL Basophils # (Auto) 0.1 x10^3/uL Erythrocyte Sedimentation Rate 15 Sodium Level 140 mmol/L Potassium Level 3.6 mmol/L Chloride Level 104 mmol/L Carbon Dioxide Level 24 mmol/L Anion Gap 12 Blood Urea Nitrogen 24 mg/dL Creatinine 0.9 mg/dL Estimated GFR (Cockcroft-Gault) 60.2 Glucose Level 122 mg/dL Calcium Level 10.4 mg/dL C-Reactive Protein, Quantitative 1.6 mg/L Current Medications Medications (Trade) Dose Ordered Sig/Yuliet Route PRN Reason Start Time Stop Time Status Last Admin Dose Admin Fentanyl Citrate (Fentanyl 2ml Vial) 50 mcg 1X ONCE IVP 08/20/21 18:15 08/20/21 18:16 DC 08/20/21 18:15 Fentanyl Citrate (Fentanyl 2ml Vial) 50 mcg 1X ONCE IVP 08/20/21 20:30 08/20/21 20:31 DC 08/20/21 20:36 Vital Signs: Vital Signs Date Time Temp Pulse Resp B/P (MAP) Pulse Ox O2 Delivery O2 Flow Rate FiO2 08/20/21 17:47 97.3 95 16 159/87 (111) 100 Room Air 97.3 EKG: EKG: [] Radiology/Procedures: Radiology/Procedures: REASON: LEFT SHOULDER PAIN NO REPORT OF TRAUMA PROCEDURE: SHOULDER 2+V LEFT XR SHOULDER_LEFT 2+ VIEWS, XR HUMERUS_LT 2 VIEWS History: Reason: LEFT SHOULDER PAIN NO REPORT OF TRAUMA / Spl. Instructions: / History: Technique: 3 views left shoulder and 2 views left humerus Comparison: June 07, 2019 Findings: Left distal clavicular resorption, increased compared to prior. No dislocation. No acute fracture. Moderate left glenohumeral DJD with remodeling of the humeral head. Impression: 1. No acute osseous abnormality. 2. Moderate left glenohumeral DJD. 3. Increased left distal clavicular resorption compared to prior, can be seen with inflammatory arthropathy including rheumatoid arthritis as well as metabo lic process such as hyperparathyroidism. Electronically signed by: Jesus Cid DO (08/20/2021 6:52 PM) [facility] [] Course & Med Decision Making: Course & Med Decision Making Pertinent Labs and Imaging studies reviewed. (See chart for details) 2100 patient states his second dose of pain medication she has received has help with the pain, patient did tell me that she was to call Dr. Liu today to get a cortisone injection into her left shoulder for which she has had multiple in the past, she says she has severe arthritis and that Dr. Santos will usually do x-rays and a joint injection for her. I will contact Dr. Liu to let him know that the patient is here in the emergency department and that she will need close follow-up due to the increased pain. [address] Santos on the phone he states that if the patient calls around 9 AM tomorrow morning he should be able to get her in same day for an appointment for a joint injection. I did pass along that information to the patient and she is agreeable with calling tomorrow morning and seeing if she can get in tomorrow. Oliver Disclaimer: Oliver Disclaimer: This electronic medical record was generated, in whole or in part, using a voice recognition dictation system. Departure Departure Impression: Primary Impression: Degenerative joint disease of left shoulder Qualified Codes: M19.012 - Primary osteoarthritis, left shoulder Disposition: HOME / SELF CARE / HOMELESS Condition: STABLE Referrals: LAILA COTTON MD (PCP) MIRELLA LIU II, MD Patient Instructions: Shoulder Pain Additional Instructions: Patient is to take home pain medication of [place] as previously prescribed by her primary care physician Wear sling as needed for comfort Follow-up with Dr. Liu as soon as possible for further evaluation and management of the your left shoulder pain [employer] Aug 20, 2021 18:14
[2021-08-20] MEDS ORDERED: fentaNYL PF VIAL 100 MCG/2 ML VIAL IVP ONE ×2 (18:15→20:30)
--- NOTE | 2021-08-20 18:54 | RAD ---
XR SHOULDER_LEFT 2+ VIEWS, XR HUMERUS_LT 2 VIEWS History: Reason: LEFT SHOULDER PAIN NO REPORT OF TRAUMA / Spl. Instructions: / History: Technique: 3 views left shoulder and 2 views left humerus Comparison: June 07, 2019 Findings: Left distal clavicular resorption, increased compared to prior. No dislocation. No acute fracture. Mo derate left glenohumeral DJD with remodeling of the humeral head. Impression: 1. No acute osseous abnormality. 2. Moderate left glenohumeral DJD. 3. Increased left distal clavicular resorption compared to prior, can be seen with inflammatory arth ropathy including rheumatoid arthritis as well as metabolic process such as hyperparathyroidism. Electronically signed by: Jesus Cid DO (08/20/2021 6:52 PM) [facility]
[2021-08-20 19:34] LABS: BASO # 0.1 x10^3/uL (0.0-0.2); BASO % 1 % (0-3); EOS # 0.3 x10^3/uL (0.0-0.7); EOS % 4 % (0-3); HEMATOCRIT 38.4 % (36.0-47.0); HEMOGLOBIN 12.9 g/dL (12.0-15.5); LYMPH # 2.9 x10^3/uL (1.0-4.8); LYMPH % 36 % (24-48); MEAN CORPUSCULAR HEMOGLOBIN 34 pg (25-35); MEAN CORPUSCULAR HGB CONC 34 g/dL (31-37); MEAN CORPUSCULAR VOLUME 100 fL (79-100); MONO # 0.7 x10^3/uL (0.0-1.1); MONO % 9 % (0-9); NEUT # 3.9 x10^3/uL (1.8-7.7); NEUT % 50 % (31-73); PLATELET COUNT 519 x10^3/uL (140-400); RED BLOOD COUNT 3.85 x10^6/uL (3.50-5.40); RED CELL DISTRIBUTION WIDTH 14.2 % (11.5-14.5); WHITE BLOOD COUNT 7.9 x10^3/uL (4.0-11.0)
[2021-08-20 19:51] LABS: CALCIUM 10.4 mg/dL (8.5-10.1); CREATININE 0.9 mg/dL (0.6-1.0); GFR 60.2; POTASSIUM 3.6 mmol/L (3.5-5.1)
[2021-08-20 19:52] LABS: C-REACTIVE PROTEIN 1.6 mg/L (0-3.3)
[2021-08-20 20:55] VITALS: BP 162/74
== END 2021-08-20 21:25 | disposition home or self-care (01) ==
LOC: ER 17:47
DX: M19.012 Primary osteoarthritis, left shoulder (principal); M19.90 Unspecified osteoarthritis, unspecified site; E78.00 Pure hypercholesterolemia, unspecified; I10 Essential (primary) hypertension; F17.200 Nicotine dependence, unspecified, uncomplicated; Z88.2 Allergy status to sulfonamides; Z88.5 Allergy status to narcotic agent; Z88.8 Allergy status to other drugs, medicaments and biological substances
CPT/HCPCS: 36415; 73030; 73060; 80048; 85025; 85651; 86140; 96374; 96376; 99285; J3010

== ENCOUNTER → 2021-09-29 | Outpatient (CLI) | payer MEDICARE ==
[~2021-09-29] MED LIST changes: +BUPIVACAINE MPF 0.25% 10 ML VIAL. ONE; +DEXAMETHASONE PRES.FREE 10 MG/ML VIAL. ONE
--- NOTE | 2021-09-29 15:04 | PDOC4 ---
Procedure Note: ICD 10 Code: ICD 10 Code: M60.89 Procedure Note: Patient was consented for trigger point injections. Risk were discussed including but not limited to bleeding infection possibility of intravascular injection sequelae spread local anesthetic numbness side effects steroid medication and portals regarding pain control. Patient understands wished to proceed. Patient sitting position under sterile prep and drape patient's left shoulder and neck were sterilely prepped and draped in the usual fashion, using a 25- gauge needle trigger point identified in the trapezius, deltoid, suprascapular musculatures and injected after negative aspiration at each site total of 60 cc 0.25% bupivacaine and total of 10 mg dexamethasone. Patient tolerated the procedure well and had no complications. MADISON OBRIEN MD September 29, 2021 15:04
--- NOTE | 2021-09-29 15:04 | PDOC ---
Progress Note - Pain Clinic Date of Service: DOS: DATE: 09/29/21 TIME: 14:57 Diagnosis: Dx: Cervical radiculopathy with cervical degenerative disease and cervical spondylosis Myofascial pain History or Present Illness: HPI: 80-year-old female returns for follow-up status post cervical epidural steroid injection x1. Patient reports she did very well about 75% improvement for about 2 months with the pain returning down the base the neck and the left upper extremity after a fall at home in early June. Patient reports she was taking less oral analgesics during that time. As well as increasing activities greater ease and comfort stretching and repetitive motions as well as reaching and weightbearing with the left upper extremity much more comfortably. Patient reports that it is doing much better she is having some shoulder pain which she has seen her orthopedic surgeon and had x-rays which we reviewed with her today as well showing some moderate left glenohumeral degenerative joint disease and severe right sided degenerative joint disease. Patient reports that she had a joint injection with her orthopedic surgeon about a month ago and the pain was g ood for about 1 day but then returned fairly significantly. Patient reports her chief complaint today however is pain on the lateral aspect of the left shoulder as well as the base of the neck on the left side and posterior shoulder blade patient reports is a 10 on scale 10 is worse over the past week 6 on average 6 its least is a [address] aching sharp tight tingling can be severe and unbearable on and off in intensity worse with repetitive motions worse with reaching with her left arm especially abduction of the left arm. Patient reports no loss of motor function with significant fatigability of the left arm. Patient has pain radiating also from the base the neck and the left upper extremity past the left arm laterally and into the forearm and hand with some numbness and tingling as well. Physical Exam: VS: Blood pressure is 145/75 pulse 85 respiration 20 temperature is 98.2 F weight is 115 pounds. PE: PHYSICAL EXAMINATION: GENERAL: The patient is awake, alert, oriented, appropriate, very pleasant in demeanor HEENT: Shows normocephalic, atraumatic. Extraocular movements are intact and symmetrical. Oral cavity: Mucous membranes moist and pink. NECK: Shows anterior throat supple without palpable lymphadenopathy noted. Swallow reflex symmetrical. CHEST: Shows normal on inspection. Breath sounds are clear bilaterally, distant but no rales rhonchi or wheezes auscultated. HEART: Shows S1, S2 clear. No murmurs auscultated. ABDOMEN: Soft, nontender, nondistended. No palpable organomegaly is noted. No rebound or guarding demonstrated. BACK: Shows spine grossly in the midline. Normal-appearing cervical lordotic curvature. Cervical paraspinous muscles show symmetrical inspection on palpation some moderate tenderness diffusely in the inferior aspect cervical paraspinous muscle more on the left than the right but present bilaterally but significant tenderness in the left medial and inferior trapezius with very firm ropelike musculature consistent with trigger point areas of musculature is also present into the left deltoid on the lateral and posterior aspect with very firm ropelike musculature consistent with areas of trigger point musculature on the side as well as the suprascapular distribution of the left shoulder with very firm ropelike musculature present as well but not the infrascapular region. There is slightly increased thoracic kyphosis, some minor flattening of the lumbar lordotic curvature. EXTREMITIES: Upper extremities show deep tendon reflexes 2+ in the biceps and triceps tendons. Motor exam is 5 on a scale of 5 with right fine dining server, biceps and triceps flexion and 4/5 on the left. Peripheral pulses are 1+ radial. No peripheral edema is noted bilaterally. Upper extremities are warm and dry to touch, equal in color and appearance. SKIN: Shows warm and dry, good turgor. No edema. No sores, rashes or bruising throughout. Procedure: Procedure: Options were discussed with the patient. Patient's old chart was reviewed as her current medication regimen updated current review of systems updated today as well. We will proceed with trigger point injections of the left trapezius as well as left deltoid as well as the left suprascapular musculature. Risk were discussed including but not limited to bleeding infection possibility of intravascular injection sequelae spread local anesthetic numbness side effects steroid medication and portals regarding pain control. Patient understands wished to proceed. Patient return to the clinic in approximately 2 weeks for follow-up, we will preauthorize patient for second cervical epidural steroid injection as she still has clinical radicular pain in the C6-7 dermatomal distribution on the left much better after the first injection about 75% 2 months ago with pain returning now as noted. Patient continue with stretching strength exercises as well as oral analgesics as currently. Medication Injected: Med Injected: Patient sitting position under sterile prep and drape patient's left shoulder and neck were sterilely prepped and draped in the usual fashion, using a 25- gauge needle trigger point identified in the trapezius, deltoid, suprascapular musculatures and injected after negative aspiration at each site total of 60 cc 0.25% bupivacaine and total of 10 mg dexamethasone. Patient tolerated the procedure well and had no complications. Condition at Discharge: Condition at Discharge: Condition at discharge stable, patient tolerated the procedure well and had no complications. MADISON OBRIEN MD September 29, 2021 15:04
== END | disposition home or self-care (01) ==
LOC: PNCL 13:57
PROVIDERS: ATTEND Anesthesiology
DX: M60.89 Other myositis, multiple sites (principal); M50.10 Cervical disc disorder with radiculopathy, unspecified cervical region; I10 Essential (primary) hypertension; M19.90 Unspecified osteoarthritis, unspecified site; F17.210 Nicotine dependence, cigarettes, uncomplicated; Z79.82 Long term (current) use of aspirin; Z79.899 Other long term (current) drug therapy; Z88.2 Allergy status to sulfonamides; Z88.5 Allergy status to narcotic agent; Z88.8 Allergy status to other drugs, medicaments and biological substances
CPT/HCPCS: 20553; J1100; J3490